=== PATIENT | female | born 1995 | race Caucasian/White ===

== ENCOUNTER 2017-12-10 10:00 | Emergency (ER) | payer OTHER ==
[2017-12-10 10:02] VITALS: BP 135/81; PULSE 92; RESP 18; TEMP 98.2; O2SAT 99
[2017-12-10 11:34] LABS: BACTERIA, URINE FEW /hpf; BILIRUBIN, URINE NEG (NEG); BLOOD, URINE MOD (NEG); GLUCOSE,URINE NEG (NEG); KETONE, URINE NEG (NEG); NITRITE,URINE NEG (NEG); PH, URINE 6.5 (5.0-8.5); SQUAMOUS EPITHELIAL CELL URINE 1 /hpf (0-5); URINE COLOR LIGHT-RED (YELLW/STRAW); URINE LEUKOCYTE ESTERASE LARGE (NEG)
[2017-12-10] MEDS ORDERED: MACR100C2 PO ×2 (11:59→12:09)
[2017-12-10] MEDS ORDERED: PHEN-510 PO ×2 (11:59→12:09)
--- NOTE | 2017-12-10 11:59 | PD ---
HPI . Urinary symptoms Chief Complaint: Complaint Time Seen by Provider: 10:28 Travel History International Travel<30 days: No Contact w/Intl Traveler<30days: No Traveled to known affect area: No History of Present Illness HPI This patient presents with the acute onset of urinary symptoms. It started this morning. She describes dysuria, frequency, urgency and hematuria. Denies fever, vomiting or back pain. Symptoms unrelieved by AZO. Symptoms are mild. PFSH Past Medical History Medical History: Denies Significant Hx Tetanus Vaccination: Unknown Influenza Vaccination: No ?: Not LMP: 12/03/17 Social History Alcohol Use: No Tobacco Use: No Substance Use: No Allergies-Medications (Allergen,Severity, Reaction): Coded Allergies: No Known Allergies (Unverified , 12/10/17) Reported Meds & Prescriptions Reported Meds & Active Scripts Active No Active Prescriptions or Reported Medications Review of Systems Except as stated in HPI: all other systems reviewed are Neg Genitourinary: Positive: Urgency, Frequency, Dysuria, Hematuria Physical Exam Narrative GENERAL: Awake and alert and in no acute distress. SKIN: Warm and dry. HEAD: Normocephalic/atraumatic. EYES: Pupils are equal. Extraocular movements are intact. NECK: Normal range of motion. CARDIOVASCULAR: Regular rate and rhythm. RESPIRATORY: Nonlabored respirations. ABDOMEN: Abdomen is soft with some suprapubic tenderness without guarding or rebound. : No CVA tenderness. MUSCULOSKELETAL: Atraumatic. NEUROLOGICAL: Nonfocal. PSYCHIATRIC: Appropriate mood and affect. Data Data Last Documented VS Vital Signs Date Time Temp Pulse Resp B/P (MAP) Pulse Ox O2 Delivery O2 Flow Rate FiO2 12/10/17 10:02 98.2 92 18 135/81 (99) 99 Room Air Orders Orders Urinalysis - C+S If Indicated (12/10/17 10:29) Urine Culture (12/10/17 10:45) Labs Laboratory Tests Test 12/10/17 10:45 Urine Color LIGHT-RED Urine Turbidity CLOUDY Urine pH 6.5 Urine Specific [place] 1.016 Urine Protein 30 mg/dL Urine Glucose (UA) NEG mg/dL Urine Ketones NEG mg/dL Urine Occult Blood MOD Urine Nitrite NEG Urine Bilirubin NEG Urine Urobilinogen LESS THAN 2.0 MG/DL Urine Leukocyte Esterase LARGE Urine RBC /hpf Urine WBC /hpf Urine Squamous Epithelial Cells 1 /hpf Urine Bacteria FEW /hpf Microscopic Urinalysis Comment CULTURE INDICATED MDM Medical Decision Making Medical Screen Exam Complete: Yes Emergency Medical Condition: Yes Differential Diagnosis Final differential diagnosis of urinary symptoms includes but is not limited to UTI, kidney stone, pyelonephritis, bacterial vaginosis, yeast infection, urinary retention Narrative Course Patient presents with acute urinary symptoms. UA>>mod blood, large LE, innumerable RBCs, innumerable WBCs, few bact She'll be discharged with prescriptions for Macrobid and Pyridium Diagnosis Primary Impression: Urinary tract infection Qualified Codes: N30.01 - Acute cystitis with hematuria Patient Instructions: General Instructions, Urinary Tract Infection in Women ( [place]) Med/Other Pt SpecificInfo: Prescription(s) given Scripts Phenazopyridine HCl (Pyridium) 200 Mg Tablet 1 TAB PO Q6HR for Dysuria, #10 Prov: Lynette Rankin MD 12/10/17 Nitrofurantoin Monohydrate Macrocrystals (Macrobid) 100 Mg Cap 100 MG PO BID for Infection for 5 Days, #10 CAP 0 Refills Prov: Lynette Rankin MD 12/10/17 Disposition: 01 DISCHARGE HOME Condition: Stable Lynette Rankin MD Dec 10, 2017 11:59
== END 2017-12-10 12:16 | disposition home or self-care (01) ==
LOC: NEPD 10:00
DX: N30.01 Acute cystitis with hematuria (principal)
CPT/HCPCS: 81001; 87086; 99283